=== PATIENT | female | born 1990 | race Caucasian/White ===

== ENCOUNTER 2016-11-01 19:41 | Emergency (ER) | payer MEDICAID ==
[2016-11-01 19:56] VITALS: O2SAT 100
[2016-11-01] MEDS ORDERED: Sodium Chloride 0.9% 1,000 ML IV STA (20:05)
[2016-11-01] MEDS ORDERED: DiphenhydrAMINE 50 mg/ml Inj IVP STA (20:05)
--- NOTE | 2016-11-01 20:06 | C.PDOC ---
History Of Present Illness Patient is a 26 year old female who presents to the ER with a complaint of an intermittent, bi-temporal/frontal, squeezing pain headache for the past 4 days associated with neck pain. Patient states she has tried taking Advil for the pain with no relief. Patient states the pain is currently 5/10. Reports LMP was yesterday, states this is the first time she has had it in months since she has been taking control via injections. Denies nausea, vomiting, or recent travel. Time Seen by Provider: 11/01/16 19:54 Chief Complaint (Nursing): Headache History Per: Patient History/Exam Limitations: no limitations Onset/Duration Of Symptoms: Days (4) Current Symptoms Are (Timing): Still Present Quality: Squeezing Associated Symptoms: denies: Nausea, Vomiting Recent travel outside of the [place]: No Past Medical History Reviewed: Historical Data, Nursing Documentation, Vital Signs Vital Signs: Last Vital Signs Temp 98.0 F 11/01/16 22:44 Pulse 83 11/01/16 22:44 Resp 16 11/01/16 22:44 BP 96/60 L 11/01/16 22:44 Pulse Ox 100 11/01/16 22:44 - Medical History PMH: No Chronic Diseases Surgical History: Family History: States: Unknown Family Hx - Social History Hx Tobacco Use: No Hx Alcohol Use: No Hx Substance Use: No - Immunization History Hx Tetanus Toxoid Vaccination: No Hx Influenza Vaccination: No Hx Pneumococcal Vaccination: No Review Of Systems Gastrointestinal: Negative for: Nausea, Vomiting Musculoskeletal: Positive for: Neck Pain Neurological: Positive for: Headache Physical Exam - Physical Exam Additional Physical Exam Comments: Constitutional: No acute distress. Head: Normocephalic. Atraumatic. Eyes: No nystagmus. ENT: Moist mucous membranes. Neck: Non-meningismus. Cardiovascular: Regular rate. Radial pulse 2+ bilaterally. Chest: No tenderness. Respiratory: Clear to auscultation bilaterally. GI: Soft. Nontender. Nondistended. Back: No CVA tenderness. Musculoskeletal: No tenderness or swelling of extremities. Skin: No rash. Neurologic: Alert, oriented x 3. Cranial nerves 2-12 intact. Strength 5/5 x4. Steady gait. ED Course And Treatment - Laboratory Results Result Diagrams: 11/01/16 20:22 11/01/16 20:22 O2 Sat by Pulse Oximetry: 100 (Room air) Pulse Ox Interpretation: Normal Medical Decision Making Medical Decision Making: Blood work and urinalysis ordered. Benadryl IVP, reglan IVP, IV fluids, toradol IVP, and tylenol PO administered. Patient felt better after treatment and states headache is gone. Labs unremarkable. Discharged home, f/u PMD, return to ER for worsening pain, vision change, stiff neck, vomiting, fever, or any other problem. Disposition - Disposition Referrals: Prakash Osuna MD [Medical Doctor] - Disposition: HOME/ ROUTINE Disposition Time: 21:57 Condition: STABLE Prescriptions: Ibuprofen [Motrin] 1 tab PO Q6 #30 tab Acetaminophen [Tylenol 325mg tab] 2 tab PO Q4H #30 tab Instructions: Acute Headache (ED) - Clinical Impression Clinical Impression: Headache - Scribe Statement The provider has reviewed the documentation as recorded by the Scribe Alexander Ojeda All medical record entries made by the Scribe were at my direction and personally dictated by me. I have reviewed the chart and agree that the record accurately reflects my personal performance of the history, physical exam, medical decision making, and the department course for this patient. I have also personally directed, reviewed, and agree with the discharge instructions and disposition.
[2016-11-01] MEDS ORDERED: DiphenhydrAMINE 50 mg/ml Inj ONE (20:24)
[2016-11-01] MEDS ORDERED: Sodium Chloride 0.9% 1,000 ML ONE (20:24)
[2016-11-01 20:25] LABS: BASO % 0.7 % (0.0-2.0); EOS # 0.1 K/uL (0.0-0.7); EOS % 1.9 % (0.0-4.0); HEMATOCRIT 39.8 % (34.0-47.0); LYMPH # 2.7 K/uL (1.0-4.3); LYMPH % 46.5 % (20.0-40.0); MEAN CELL VOLUME 88.5 fL (81.0-99.0); MEAN CORPUSCULAR HEMOGLOBIN 29.7 pg (27.0-31.0); MEAN CORPUSCULAR HGB CONC 33.6 g/dL (33.0-37.0); MEAN PLATELET VOLUME 8.5 fL (7.2-11.7); MONO # 0.5 K/uL (0.0-0.8); NRBC % 0.1 % (0.0-2.0); WHITE BLOOD COUNT 5.8 K/uL (4.8-10.8)
[2016-11-01 20:28] LABS: RBC URINE < 1 /hpf (0-3); URINE BILIRUBIN NEGATIVE (NEGATIVE); URINE COLOR Yellow (YELLOW); URINE GLUCOSE (UA) NORMAL (Normal); URINE KETONE NEGATIVE (NEGATIVE); URINE LEUKOCYTE ESTERASE NEG Leu/uL (Negative); URINE PROTEIN NEGATIVE (NEGATIVE); WBC URINE 2 /hpf (0-5)
[2016-11-01 20:35] LABS: CHLORIDE 104 mmol/L (98-107); SODIUM 142 mmol/L (132-148)
[2016-11-01 20:37] LABS: ALB/GLOB RATIO 1.5 (1.0-2.1); ALKALINE PHOSPHATASE 54 U/L (38-126); AST/SGOT 15 U/L (14-36); BILIRUBIN,TOTAL 0.8 mg/dL (0.2-1.3); CARBON DIOXIDE 26 mmol/L (22-30); GFR AFRICAN-AMERICAN > 60; TOTAL PROTEIN 7.4 g/dL (6.3-8.3)
[2016-11-01 20:38] LABS: ALT/SGPT 18 U/L (9-52); BLOOD UREA NITROGEN 16 mg/dL (7-17); CALCIUM 8.7 mg/dl (8.6-10.4); GLUCOSE,RANDOM 74 mg/dL (65-105)
[2016-11-01 20:50] LABS: URINE BLOOD NEGATIVE (NEGATIVE)
[2016-11-01 22:44] VITALS: BP 96/60; PULSE 83; RESP 16; TEMP 98
== END 2016-11-01 22:44 | disposition home or self-care (01) ==
LOC: C.ER 19:41
DX: R51 Headache (principal)
CPT/HCPCS: 80053; 81001; 84703; 85025; 96361; 96374; 96375; 99284; J1200; J1885; J2765; J7040